=== PATIENT | male | born 1985 | race Caucasian/White ===

== ENCOUNTER 2023-05-05 22:40 | Inpatient (IN) | payer OTHER ==
[2023-05-05] MEDS ORDERED: ORPHENADRINE 30 MG/ML 2 ML VIAL IVP STA (23:04)
[2023-05-05] MEDS ORDERED: KETOROLAC 15 MG/ML 1 ML VIAL IVP STA (23:04)
[2023-05-05] MEDS ORDERED: SODIUM CHLORIDE 0.9% 1,000 ML IV STA (23:04)
[2023-05-05 23:27] LABS: Basophils % (A) 0 %; Eosinophils # (A) 0.1 k/uL (0-0.7); Eosinophils % (A) 1 %; HCT 48.4 % (39.0-53.0); HGB 17.4 gm/dL (13.0-17.5); Lymphocytes % (A) 11 %; MCH 33.5 pg (25.0-35.0); MCHC 35.9 g/dL (31.0-37.0); MCV 93.4 fL (80.0-100.0); Mean Platelet Volume 9.3; Monocytes # (A) 0.7 k/uL (0-1.0); Monocytes % (A) 8 %; Neutrophils # (A) 7.2 k/uL (1.3-7.7); Neutrophils % (A) 78 %; Platelet Count 156 k/uL (150-450); RBC 5.19 m/uL (4.30-5.90); RDW 13.2 % (11.5-15.5); WBC 9.2 k/uL (3.8-10.6)
[2023-05-05 23:48] LABS: ALT 114 U/L (4-49); AST 150 U/L (17-59); African American GFR (CKD) >90 (>60 ml/min/1.73 sqM); Alkaline Phosphatase 112 U/L (38-126); Anion Gap 13 mmol/L; Blood Urea Nitrogen 14 mg/dL (9-20); Calcium 9.7 mg/dL (8.4-10.2); Carbon Dioxide 27 mmol/L (22-30); Chloride 92 mmol/L (98-107); Glucose 68 mg/dL (74-99); Magnesium 1.7 mg/dL (1.6-2.3); Non-African American GFR(CKD) 82 (>60 ml/min/1.73 sqM); Potassium 3.4 mmol/L (3.5-5.1); Sodium 132 mmol/L (137-145); Total Protein 8.3 g/dL (6.3-8.2)
[2023-05-05 23:55] LABS: Creatine Kinase 1235 U/L (55-170)
[2023-05-06] MEDS ORDERED: SODIUM CHLORIDE 0.9% 1,000 ML IV STA ×2 (00:07)
--- NOTE | 2023-05-06 00:19 | ED ---
General Adult HPI - General Chief complaint: Extremity Problem,Nontraumatic Stated complaint: Body cramps Time Seen by Provider: 05/05/23 22:49 Source: patient, RN notes reviewed Mode of arrival: ambulatory Limitations: no limitations - History of Present Illness Initial comments: This is a 37-year-old male who presents to the emergency department for body cramps. 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 However, patient states that this is normal for him and he was not doing any more work than he usually would. Denies sustaining any injuries. However, patient states that he has started to develop severe cramps in the bilateral upper and lower extremities. This has never happened to him before. He does state that prior to work today he had been experiencing diarrhea for 3 days. Denies any nausea or vomiting. Denies any fevers, chills, sore throat, cough, dyspnea, chest pain, palpitations , abdominal pain, nausea, vomiting, back pain, or headaches. - Related Data Allergies Allergy/AdvReac Type Severity Reaction Status Date / Time No Known Allergies Allergy Verified 05/05/23 22:47 Review of Systems ROS Statement: Those systems with pertinent positive or pertinent negative responses have been documented in the HPI. ROS Other: All systems not noted in ROS Statement are negative. Past Medical History Past Medical History: No Reported History History of Any Multi-Drug Resistant Organisms: None Reported Past Surgical History: Hernia Repair Past Psychological History: No Psychological Hx Reported Smoking Status: Current every day smoker Past Alcohol Use History: Daily Past Drug Use History: None Reported General Exam Limitations: no limitations General appearance: alert, in no apparent distress Head exam: Present: atraumatic, normocephalic, normal inspection Respiratory exam: Present: normal lung sounds bilaterally. Absent: respiratory distress, wheezes, rales, rhonchi, stridor Cardiovascular Exam: Present: regular rate, normal rhythm, normal heart sounds. Absent: systolic murmur, diastolic murmur, rubs, gallop, clicks GI/Abdominal exam: Present: soft, normal bowel sounds. Absent: distended, tenderness, guarding, rebound, rigid Neurological exam: Present: alert, oriented X3, CN II-XII intact Psychiatric exam: Present: normal affect, normal mood Skin exam: Present: warm, dry, intact, normal color. Absent: rash Course Vital Signs 05/05/23 05/06/23 22:41 02:50 Temperature 97.8 F 97.9 F Pulse Rate 108 H 66 Respiratory 18 18 Rate Blood Pressure 102/72 157/93 O2 Sat by Pulse 98 99 Oximetry Medical Decision Making - Medical Decision Making This is a 37-year-old male who presents to the emergency department for body cramps. Was pt. sent in by a medical professional or institution? @ -No Did you speak to anyone other than the patient for history? @ -No Did you review nursing and triage notes? @ -Yes, and I agree, it is accurate with regards to the patient's symptoms. Were old charts reviewed? @ -No Differential Diagnosis? @ -Differential Body Cramps: Dehydration, electrolyte deficiency, rhabdomyolysis, injury, this is not meant to be an all-inclusive list. EKG interpreted by me (3pts min.)? @ -Not obtained X-rays interpreted by me (1pt min.)? @ -Not obtained CT interpreted by me (1pt min.)? @ -Not obtained U/S interpreted by me (1pt. min.)? @ -Not interpreted by me What testing was considered but not performed? (CT, X-rays, U/S, labs)? Why? @ -None What meds were considered but not given? Why? @ -None Did you discuss the management of the patient with other professionals? @ -Yes, Beatriz Agosto with [facility] who accepts the patient for admission. Did you reconcile home meds? @ -No Was smoking cessation discussed for >3mins.? @ -No Was critical care preformed (if so, how long)? @ -No Were there social determinants of health that impacted care today? How? (Homelessness, low income, unemployed, alcoholism, drug addiction, transportation, low edu. Level, literacy, decrease access to med. care, shelter, rehab)? @ -No Was there de-escalation of care discussed even if they declined? (Discuss DNR or withdrawal of care, Hospice)? @ -No What co-morbidities impacted this encounter? (DM, HTN, Smoking, COPD, CAD, Cancer, CVA, Hep., AIDS, mental health diagnosis, sleep apnea, morbid obesity)? @ -None Was patient admitted / discharged? @ -Admitted. Lab work obtained revealing a critically elevated creatinine kinase of 1235 suggestive of rhabdomyolysis, which is also consistent with the patient's symptoms. This may be exertional in nature. Liver enzymes were also elevated, which may be related to the rhabdomyolysis. Patient denies any ab dominal pain and he has no known history of liver problems. A liver ultrasound was obtained in light of these findings. Results pending at the time of admission. Patient was given a 2 L bolus of IV fluids and started on maintenance fluids at 130 mL an hour. Patient admitted to medicine for further management of rhabdomyolysis. Undiagnosed new problem with uncertain prognosis? @ -None Drug Therapy requiring intensive monitoring for toxicity (Heparin, Nitro, Insulin, Cardizem)? @ -None Were any procedures done? @ -None Diagnosis/symptom? @ -Rhabdomyolysis Acute, or Chronic, or Acute on Chronic? @ -Acute Uncomplicated (without systemic symptoms) or Complicated (systemic symptoms)? @ -Uncomplicated Side effects of treatment? @ -None Exacerbation, Progression, or Severe Exacerbation] @ -Not applicable Poses a threat to life or bodily function? @ -Yes This case was discussed in detail with the attending ED physician, Dr. Cassidy. Presentation, findings, and treatment plan discussed in detail as well. - Lab Data Result diagrams: 05/05/23 23:03 05/05/23 23:03 Lab Results 05/05/23 05/05/23 05/05/23 Range/Units 23:03 23:03 23:40 WBC 9.2 (3.8-10.6) k/uL RBC 5.19 (4.30-5.90) m/uL Hgb 17.4 (13.0-17.5) gm/dL Hct 48.4 (39.0-53.0) % MCV 93.4 (80.0-100.0) fL MCH 33.5 (25.0-35.0) pg MCHC 35.9 (31.0-37.0) g/dL RDW 13.2 (11.5-15.5) % Plt Count 156 (150-450) k/uL MPV 9.3 Neutrophils % 78 % Lymphocytes % 11 % Monocytes % 8 % Eosinophils % 1 % Basophils % 0 % Neutrophils # 7.2 (1.3-7.7) k/uL Lymphocytes # 1.0 (1.0-4.8) k/uL Monocytes # 0.7 (0-1.0) k/uL Eosinophils # 0.1 (0-0.7) k/uL Basophils # 0.0 (0-0.2) k/uL Sodium 132 L (137-145) mmol/L Potassium 3.4 L (3.5-5.1) mmol/L Chloride 92 L (98-107) mmol/L Carbon Dioxide 27 (22-30) mmol/L Anion Gap 13 mmol/L BUN 14 (9-20) mg/dL Creatinine 1.13 (0.66-1.25) mg/dL Est GFR (CKD-EPI)AfAm >90 (>60 ml/min/1.73 sqM) Est GFR (CKD-EPI)NonAf 82 (>60 ml/min/1.73 sqM) Glucose 68 L (74-99) mg/dL Calcium 9.7 (8.4-10.2) mg/dL Phosphorus 5.0 H (2.5-4.5) mg/dL Magnesium 1.7 (1.6-2.3) mg/dL Total Bilirubin 5.0 H (0.2-1.3) mg/dL AST 150 H (17-59) U/L ALT 114 H (4-49) U/L Alkaline Phosphatase 112 (38-126) U/L Creatine Kinase 1235 H* (55-170) U/L Total Protein 8.3 H (6.3-8.2) g/dL Albumin 5.0 (3.5-5.0) g/dL Urine Color Urine Appearance (Clear) Urine pH (5.0-8.0) Ur Specific [place] (1.001-1.035) Urine Protein (Negative) Urine Glucose (UA) (Negative) Urine Ketones (Negative) Urine Blood (Negative) Urine Nitrite (Negative) Urine Bilirubin (Negative) Urine Urobilinogen (<2.0) mg/dL Ur Leukocyte Esterase (Negative) Influenza Type A (PCR) Not Detected (Not Detectd) Influenza Type B (PCR) Not Detected (Not Detectd) RSV (PCR) Not Detected (Not Detectd) SARS-CoV-2 (PCR) Not Detected (Not Detectd) 05/06/23 Range/Units 00:01 WBC (3.8-10.6) k/uL RBC (4.30-5.90) m/uL Hgb (13.0-17.5) gm/dL Hct (39.0-53.0) % MCV (80.0-100.0) fL MCH (25.0-35.0) pg MCHC (31.0-37.0) g/dL RDW (11.5-15.5) % Plt Count (150-450) k/uL MPV Neutrophils % % Lymphocytes % % Monocytes % % Eosinophils % % Basophils % % Neutrophils # (1.3-7.7) k/uL Lymphocytes # (1.0-4.8) k/uL Monocytes # (0-1.0) k/uL Eosinophils # (0-0.7) k/uL Basophils # (0-0.2) k/uL Sodium (137-145) mmol/L Potassium (3.5-5.1) mmol/L Chloride (98-107) mmol/L Carbon Dioxide (22-30) mmol/L Anion Gap mmol/L BUN (9-20) mg/dL Creatinine (0.66-1.25) mg/dL Est GFR (CKD-EPI)AfAm (>60 ml/min/1.73 sqM) Est GFR (CKD-EPI)NonAf (>60 ml/min/1.73 sqM) Glucose (74-99) mg/dL Calcium (8.4-10.2) mg/dL Phosphorus (2.5-4.5) mg/dL Magnesium (1.6-2.3) mg/dL Total Bilirubin (0.2-1.3) mg/dL AST (17-59) U/L ALT (4-49) U/L Alkaline Phosphatase (38-126) U/L Creatine Kinase (55-170) U/L Total Protein (6.3-8.2) g/dL Albumin (3.5-5.0) g/dL Urine Color Light Yellow Urine Appearance Clear (Clear) Urine pH 5.5 (5.0-8.0) Ur Specific [place] 1.006 (1.001-1.035) Urine Protein Negative (Negative) Urine Glucose (UA) Negative (Negative) Urine Ketones Negative (Negative) Urine Blood Negative (Negative) Urine Nitrite Negative (Negative) Urine Bilirubin Negative (Negative) Urine Urobilinogen <2.0 (<2.0) mg/dL Ur Leukocyte Esterase Negative (Negative) Influenza Type A (PCR) (Not Detectd) Influenza Type B (PCR) (Not Detectd) RSV (PCR) (Not Detectd) SARS-CoV-2 (PCR) (Not Detectd) - Radiology Data Radiology results: report reviewed, image reviewed Disposition Clinical Impression: Rhabdomyolysis Disposition: ADMITTED IP TO THIS HOSP
[2023-05-06 01:33] LABS: Appearance,Urine Clear (Clear); Bilirubin,Urine Negative (Negative); Blood,Urine Negative (Negative); Color,Urine Light Yellow; Glucose,Urine (UA) Negative (Negative); Ketones,Urine Negative (Negative); Leukocyte Esterase,Urine Negative (Negative); Nitrite,Urine Negative (Negative); PH, Urine 5.5 (5.0-8.0); Protein,Urine Negative (Negative); Specific Gravity,Urine 1.006 (1.001-1.035); Urobilinogen,Urine <2.0 mg/dL (<2.0)
[2023-05-06] MEDS ORDERED: ONDANSETRON 4 MG/2 ML VIAL IVP PRN (01:33)
[2023-05-06] MEDS ORDERED: IBUPROFEN 400 MG TAB PO PRN (01:33)
[2023-05-06] MEDS ORDERED: KETOROLAC 15 MG/ML 1 ML VIAL IVP PRN (01:33)
[2023-05-06] MEDS ORDERED: NALOXONE 0.4 MG/ML 1 ML VIAL IV PRN (01:33)
[2023-05-06] MEDS ORDERED: MORPHINE SULFATE 4 MG/ML SYRINGE IV PRN (01:33)
[2023-05-06] MEDS ORDERED: ACETAMINOPHEN TAB 325 MG TAB PO PRN (01:33)
--- NOTE | 2023-05-06 03:20 | US ---
EXAM: US Abdomen Limited CLINICAL HISTORY: ITS.REASON US Reason: Elevated LFTs TECHNIQUE: Real-time ultrasound of the abdomen with image documentation. COMPARISON: No relevant prior studies available. FINDINGS: Liver: Fatty infiltration of the liver. Common bile duct: Common bile duct measures 2.5 mm. Kidneys: Right kidney measures 10.4 mm. IMPRESSION: 1. Fatty infiltration of the liver. 2. Unremarkable gallbladder.
[2023-05-06 07:57] VITALS: RESP 16; TEMP 98.3
[2023-05-06] MEDS ORDERED: SODIUM CHLORIDE 0.9% 1,000 ML IV SCH (08:00)
[2023-05-06] MEDS ORDERED: LOPERAMIDE 2 MG CAP PO STA (10:22)
[2023-05-06] MEDS ORDERED: LOPERAMIDE 2 MG CAP PO PRN (10:22)
[2023-05-06 11:07] LABS: ALT 81 U/L (4-49); AST 104 U/L (17-59); African American GFR (CKD) >90 (>60 ml/min/1.73 sqM); Albumin 3.3 g/dL (3.5-5.0); Albumin/Globulin Ratio 1.3; Alkaline Phosphatase 76 U/L (38-126); Anion Gap 6 mmol/L; Blood Urea Nitrogen 13 mg/dL (9-20); Calcium 8.7 mg/dL (8.4-10.2); Carbon Dioxide 26 mmol/L (22-30); Chloride 102 mmol/L (98-107); Globulin 2.5 g/dL; Glucose 119 mg/dL (74-99); Magnesium 1.7 mg/dL (1.6-2.3); Non-African American GFR(CKD) >90 (>60 ml/min/1.73 sqM); Potassium 3.3 mmol/L (3.5-5.1); Sodium 134 mmol/L (137-145); Total Bilirubin 3.1 mg/dL (0.2-1.3); Total Protein 5.8 g/dL (6.3-8.2)
[2023-05-06] MEDS ORDERED: Potassium Replacement Protocol 1 EACH MISC MISCELLANE PRN ×2 (11:30→11:40)
[2023-05-06] MEDS ORDERED: Magnesium Replacement Protocol 1 EACH MISC MISCELLANE PRN (11:40)
[2023-05-06] MEDS ORDERED: MAGNESIUM SULFATE-D5W PMX 1 GM in DEXTROSE/WATER 1 100ML.BAG IVPB ONE (11:40)
[2023-05-06] MEDS: POTASSIUM CHLORIDE ER 20 MEQ TAB.ER PO SCH ×3 (12:00→16:24)
[2023-05-06] MEDS ORDERED: POTASSIUM CHLORIDE ER 20 MEQ TAB.ER PO SCH (12:00)
[2023-05-06 12:58] VITALS: BP 140/83; PULSE 71
--- NOTE | 2023-05-06 18:12 | P.HPIM ---
History of Present Illness H&P Date: 05/06/23 This is a pleasant 37-year-old male who presented to the emergency department with severe cramping of multiple muscles throughout the whole body. 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 Patient currently does not have a primary care provider and lives in the [facility] and resources will be provided. Patient denies significant past medical history other than a hernia repair at 11 years old, reports to smoking approximately a pack per day and daily drinking including a few beers and a half of a half pint of liquor a few nights a week. Patient had a liver ultrasound done which showed a fatty infiltration of the liver along with unremarkable gallbladder.labs revealed a normal white count, sodium slightly low at 132, potassium 3.4, creatinine mildly elevated at 1.13, calcium 9.7, phosphorus 5.0, magnesium 1.7, total bili 5.0 with an AST of 150 and ALT 114 with creatinine kinase 1235 and albumin was normal at 5.0. Urinalysis was negative and virology testing including influenza, RSV, Covid were all negative. Patient was admitted with elevated CK level and dehydration. Patient started developing some diarrhea this morning and was started on Imodium. Patient was started on IV hydration in the ER and received 2 boluses. Review Of Systems: Constitutional: No fever, no chills, no night sweats. No weight change. No weakness, fatigue or lethargy. No daytime sleepiness. EENT: No headache. No blurred vision or double vision, no loss of vision. No loss of Hearing, no ringing in the ears, no dizziness. No nasal drainage or congestion. No epistaxis. No sore throat. Lungs: No shortness of breath, cough, no sputum production. No wheezing. Cardiovascular: No chest pain, no lower extremity edema. No palpitations. No paroxysmal nocturnal dyspnea. No orthopnea. No lightheadedness or dizziness. No syncopal episodes. Abdominal: No abdominal pain. No nausea, vomiting. No diarrhea. No constipation. No bloody or tarry stools.. No loss of appetite. Genitourinary: No dysuria, increased frequency, urgency. No urinary retention. Musculoskeletal: Reports myalgias. Reports significant muscle weakness, no gait dysfunction, no frequent falls. No back pain. No neck pain. Reports muscles locking up yesterday after work Integumentary: No wounds, no lesions. No rash or pruritus. No unusual bruising. No change in hair or nails. Neurologic: No aphasia. No facial droop. No change in mentation. No head injury. No headache. No paralysis. No paresthesia. Psychiatric: No depression. No anxiety. No mood swings. Endocrine: No abnormal blood sugars. No weight change. No excessive sweating or thirst. No cold intolerance. PHYSICAL EXAMINATION: GENERAL: The patient is alert and oriented x4, Well developed, well nourished. HEENT: Pupils are round and equally reacting to light. EOMI. no scleral icterus. No conjunctival pallor. Normocephalic, atraumatic. No pharyngeal erythema. No thyromegaly. CARDIOVASCULAR: S1 and S2 muffled PULMONARY: Breath sounds clear to auscultation bilaterally with no wheezing or rhonchi noted. ABDOMEN: soft. Nontender on exam. non-distended, normoactive bowel sounds. No palpable organomegaly. MUSCULOSKELETAL: No joint swelling or deformity. EXTREMITIES: No cyanosis, clubbing, or pedal edema. NEUROLOGICAL: Gross neurological examination did not reveal any focal deficits. SKIN: No rashes. Assessment: Muscle cramps likely secondary to dehydration Elevated CK secondary to dehydration Hypokalemia secondary to diarrhea Hypomagnesemia secondary to diarrhea elevated liver enzymes secondary to Daily alcohol use Continued ongoing nicotine abuse GI prophylaxis DVT prophylaxis Full code Plan: Patient to continue on IV hydration and replace electrolytes per protocol. Potassium was 3.3 and magnesium was 1.6 and will replace Alcohol cessation was discussed as patient reports to drinking approximately 3-5 tall beers and half a pint of liquor daily. Patient with elevated liver enzymes along with elevated total bilirubin and underwent liver ultrasound showing fatty infiltration likely secondary to daily alcohol use Tobacco cessation counseled Patient having frequent episodes of diarrhea and will add Imodium along with Questran. Patient reports to feeling improved and will monitor for the next few hours and is having less frequent diarrhea and tolerating diet patient will be discharged home The impression and plan of care has been dictated by Debi Bejarano, nurse practitioner as directed. Dr. Mook MD I have performed a history and examination and MDM of this patient, discussed the same with the dictator, and agree with the dictator's assessment and plan as written ,documented as a scribe. Based on total visit time, I have performed more than 50% of the visit. Any additional findings or plans will be noted. Past Medical History Past Medical History: No Reported History History of Any Multi-Drug Resistant Organisms: None Reported Past Surgical History: Hernia Repair Additional Past Surgical History / Comment(s): hernia repair at 11 yo Past Psychological History: No Psychological Hx Reported Smoking Status: Current every day smoker Past Alcohol Use History: Daily Past Drug Use History: None Reported Medications and Allergies Home Medications Medication Instructions Recorded Confirmed Type Acetaminophen Tab [Tylenol] 650 mg PO Q6HR PRN tab 05/06/23 Rx Cholestyramine (with Sugar) 4 gm PO BID PRN #30 packet 05/06/23 Rx [Questran] Ibuprofen [Motrin] 400 mg PO Q6HR PRN #40 tab 05/06/23 Rx Loperamide [Imodium] 2 mg PO QID PRN #60 cap 05/06/23 Rx Allergies Allergy/AdvReac Type Severity Reaction Status Date / Time No Known Allergies Allergy Verified 05/06/23 07:21 Physical Exam Vitals: Vital Signs Temp Pulse Pulse Resp BP BP Pulse Ox 05/06/23 07:09 98.3 F 75 16 134/84 98 05/06/23 03:12 98.0 F 83 18 153/98 93 L 05/06/23 02:50 97.9 F 66 18 157/93 99 05/05/23 22:41 97.8 F 108 H 18 102/72 98 Intake and Output 05/05/23 05/06/23 05/06/23 22:59 06:59 14:59 Other: Voiding Method Toilet Weight 88.451 kg 88.451 kg Results CBC & Chem 7: 05/05/23 23:03 05/06/23 09:23 Labs: Abnormal Lab Results - Last 24 Hours (Table) 05/05/23 Range/Units 23:03 Sodium 132 L (137-145) mmol/L Potassium 3.4 L (3.5-5.1) mmol/L Chloride 92 L (98-107) mmol/L Glucose 68 L (74-99) mg/dL Phosphorus 5.0 H (2.5-4.5) mg/dL Total Bilirubin 5.0 H (0.2-1.3) mg/dL AST 150 H (17-59) U/L ALT 114 H (4-49) U/L Creatine Kinase 1235 H* (55-170) U/L Total Protein 8.3 H (6.3-8.2) g/dL Thrombosis Risk Factor Assmnt - Choose All That Apply Any of the Below Risk Factors Present?: Yes Each Factor Represents 1 point: Obesity (BMI >25) Each Risk Factor Represents 3 Points: Family history of DVT/PE Other congenital or acquired thrombophilia - If yes, enter type in comment: No Thrombosis Risk Factor Assessment Total Risk Factor Score: 4 Thrombosis Risk Factor Assessment Level: Moderate Risk
--- NOTE | 2023-05-06 18:49 | P.DS ---
Providers Date of admission: 05/06/23 02:23 Expected date of discharge: 05/06/23 Attending physician: Arnulfo Beebe Primary care physician: Stated None Hospital Course: Final diagnosis Muscle cramps likely secondary to dehydration Elevated CK secondary to dehydration Hypokalemia secondary to diarrhea Hypomagnesemia secondary to diarrhea elevated liver enzymes secondary to Daily alcohol use Continued ongoing nicotine abuse GI prophylaxis DVT prophylaxis Full code Discharge disposition Patient is being discharged in a stable condition with guarded prognosis to home . Patient will follow-up with Guerline Romero in the [facility] to establish in the outpatient setting upon discharge. Resources provided for other [facility] physicians as patient has no PCP. Patient to follow-up and have repeat labs of CMP and magnesium in the next few days. Total time taken is greater than 35 minutes. Hospital course This is a 37-year-old male who was recently admitted with muscle cramps and elevated CK level and ER was concern for acute rhabdomyolysis. Level was only 1200 and patient showing improvements with IV hydration along with symptoms are improving. Patient reports to drinking multiple alcoholic beverages daily and did have liver ultrasound showing fatty liver infiltrates and elevated bili level along with elevated liver functions. Has been instructed to avoid all call use. Patient also having multiple episodes of diarrhea is being started on Imodium along with Questran. Patient to continue on multivitamin along with thiamine and folic acid supplements. Resources provided for patient to obtain a primary care provider as he does not have one. Patient reports to feeling improved and would like to go home. Patient provided prescription for repeat labs in the next few days. Currently no reports of chest pain, shortness of breath, or palpitations. Patient is afebrile. No reports of nausea or vomiting and patient is tolerating diet. Patient will be discharged home today. Physical exam: Gen: This is a 37 -year-old male who is awake, alert and oriented 3, well- developed, well-nourished HEENT: Head is atraumatic, normocephalic. Pupils equal, round. Sclerae is anicteric. NECK: Supple. No JVD. No lymphadenopathy. No thyromegaly. LUNGS: Clear to auscultation. No wheezes or rhonchi. No intercostal retractions. HEART: Regular rate and rhythm. No murmur. ABDOMEN: Soft. Bowel sounds are present. No masses. No tenderness. EXTREMITIES: No pedal edema. No calf tenderness. NEUROLOGICAL: Patient is awake, alert and oriented x3. Cranial nerves 2 through 12 are grossly intact. Please refer to medication reconciliation sheet for a list of medications. The impression and plan of care has been dictated by Debi Bejarano, Nurse Practitioner as directed. Dr. Mook MD I have performed a history and examination and MDM of this patient, discussed the same with the dictator, and agree with the dictator's assessment and plan as written ,documented as a scribe. Based on total visit time, I have performed more than 50% of the visit. Patient Condition at Discharge: Stable Plan - Discharge Summary New Discharge Prescriptions: New Ibuprofen [Motrin] 400 mg PO Q6HR PRN #40 tab PRN Reason: Mild Pain Or Fever > 100.5 Acetaminophen Tab [Tylenol] 650 mg PO Q6HR PRN tab PRN Reason: Mild Pain Or Fever > 100.5 Loperamide [Imodium] 2 mg PO QID PRN #60 cap PRN Reason: Diarrhea Cholestyramine (with Sugar) [Questran] 4 gm PO BID PRN #30 packet PRN Reason: Diarrhea Discharge Medication List Acetaminophen Tab [Tylenol] 650 mg PO Q6HR PRN tab 05/06/23 [Rx] Cholestyramine (with Sugar) [Questran] 4 gm PO BID PRN #30 packet 05/06/23 [Rx] Ibuprofen [Motrin] 400 mg PO Q6HR PRN #40 tab 05/06/23 [Rx] Loperamide [Imodium] 2 mg PO QID PRN #60 cap 05/06/23 [Rx] Follow up Appointment(s)/Referral(s): Guerline Romero PAC [REFERRING] - 1 Week (please call to schedule a new patient appointment. [phone]) Ambulatory/Diagnostic Orders: Basic Metabolic Panel [LAB.AMB] Time Frame: 2 Days, Location: None Selected Patient Instructions/Handouts: Hypokalemia (DC), Rhabdomyolysis (DC), Abuse of Alcohol (DC), Hypomagnesemia (DC) Activity/Diet/Wound Care/Special Instructions: Activity Limited until follow-up Follow-up and establish with primary care provider Continue bland diet including magnesium and potassium supplements Continue to hydrate Encourage fluids and rest Repeat labs in 2-3 days to monitor electrolytes Avoid alcohol use Discharge/Stand Alone Forms: [facility] Area PCPs Discharge Disposition: HOME SELF-CARE
== END 2023-05-06 16:39 | disposition home or self-care (01) | DRG 422 ==
LOC: EC 22:40 → 5NMEDONC 05-06 02:23
PROVIDERS: ADMIT Hospitalist; ATTEND Hospitalist
DX: E86.0 Dehydration (principal); E83.42 Hypomagnesemia; K76.0 Fatty (change of) liver, not elsewhere classified; E87.6 Hypokalemia; Z20.822 Contact with and (suspected) exposure to COVID-19; F17.210 Nicotine dependence, cigarettes, uncomplicated; I10 Essential (primary) hypertension; R19.7 Diarrhea, unspecified; Z71.6 Tobacco abuse counseling; Z87.19 Personal history of other diseases of the digestive system
CPT/HCPCS: 36415; 76705; 80053; 81003; 82550; 83735; 84100; 85025; 87636; 96361; 96374; 96375; 99284

== ENCOUNTER 2025-01-14 06:33 | Emergency (ER) | payer OTHER ==
--- NOTE | 2025-01-14 06:40 | ED ---
Back Pain HPI - General Chief Complaint: Back Pain/Injury Stated Complaint: Flank pain Time Seen by Provider: 01/14/25 06:36 Source: patient, RN notes reviewed Mode of arrival: EMS Limitations: no limitations - History of Present Illness Initial Comments: This is a 39-year-old male who presents to the emergency department for right flank pain. States that it started last night around 11 PM. The pain radiates into the abdomen. He has associated nausea and vomiting. Reports a history of kidney stones about a year ago and states that it feels similar. He was able to pass the kidney stone on his own last time. Denies any fevers/chills or urinary symptoms. He is a recovering drug addict and alcoholic and is currently refusing all pain medication, including nonaddictive substances like NSAIDs and Tylenol. MD Complaint: back pain - Related Data Previous Rx's Medication Instructions Recorded Acetaminophen Tab [Tylenol] 650 mg PO Q6HR PRN tab 05/06/23 Cholestyramine (with Sugar) 4 gm PO BID PRN #30 packet 05/06/23 [Questran] Ibuprofen [Motrin] 400 mg PO Q6HR PRN #40 tab 05/06/23 Loperamide [Imodium] 2 mg PO QID PRN #60 cap 05/06/23 Allergies Allergy/AdvReac Type Severity Reaction Status Date / Time No Known Allergies Allergy Verified 05/06/23 07:21 Review of Systems ROS Statement: Those systems with pertinent positive or pertinent negative responses have been documented in the HPI. ROS Other: All systems not noted in ROS Statement are negative. Past Medical History Past Medical History: No Reported History History of Any Multi-Drug Resistant Organisms: None Reported Past Surgical History: Hernia Repair Additional Past Surgical History / Comment(s): hernia repair at 11 yo Past Psychological History: No Psychological Hx Reported Smoking Status: Current every day smoker Past Alcohol Use History: Daily Past Drug Use History: None Reported General Exam Limitations: no limitations General appearance: alert, in distress Head exam: Present: atraumatic, normocephalic, normal inspection Respiratory exam: Present: normal lung sounds bilaterally. Absent: respiratory distress, wheezes, rales, rhonchi, stridor Cardiovascular Exam: Present: regular rate, normal rhythm GI/Abdominal exam: Present: soft, tenderness (RLQ), normal bowel sounds. Absent: distended Back exam: Present: CVA tenderness (R). Absent: CVA tenderness (L) Neurological exam: Present: alert, oriented X3, CN II-XII intact Psychiatric exam: Present: normal affect, normal mood Skin exam: Present: warm, dry, intact, normal color. Absent: rash Course Vital Signs 01/14/25 01/14/25 01/14/25 06:35 07:24 09:01 Temperature 97.8 F Pulse Rate 99 95 86 Respiratory 22 18 18 Rate Blood Pressure 160/117 158/130 158/126 O2 Sat by Pulse 97 97 98 Oximetry 01/14/25 09:43 Temperature 98.0 F Pulse Rate 85 Respiratory 18 Rate Blood Pressure 155/111 O2 Sat by Pulse 98 Oximetry Medical Decision Making - Medical Decision Making This is a 39 year old male who presents to the emergency department for right flank pain. Was pt. sent in by a medical professional or institution? @ -No Did you speak to anyone other than the patient for history? @ -No Did you review nursing and triage notes? @ -Yes, and I agree, it is accurate with regards to the patient's symptoms. Were old charts reviewed? @ -No Differential Diagnosis? @ -Differential Flank Pain: UTI, pyelonephritis, kidney stone, musculoskeletal, pancreatitis, cholecystitis, this is not meant to be an all-inclusive list. EKG interpreted by me (3pts min.)? @ -Not obtained X-rays interpreted by me (1pt min.)? @ -Not obtained CT interpreted by me (1pt min.)? @ -CT scan of the abdomen and pelvis obtained. My interpretation identifies no ureteral calculus. U/S interpreted by me (1pt. min.)? @ -Scrotal ultrasound obtained. My interpretation identifies no evidence of a testicular torsion. What testing was considered but not performed? (CT, X-rays, U/S, labs)? Why? @ -None What meds were considered but not given? Why? @ -Toradol and Tylenol, however patient refused. Did you discuss the management of the patient with other professionals? @ -No Did you reconcile home meds? @ -No Was smoking cessation discussed for >3mins.? @ -No Was critical care preformed (if so, how long)? @ -No Were there social determinants of health that impacted care today? How? (Homelessness, low income, unemployed, alcoholism, drug addiction, transportation, low edu. Level, literacy, decrease access to med. care, alf, rehab)? @ -Hx of drug addiction, making him hesitant to treatment Was there de-escalation of care discussed even if they declined? (Discuss DNR or withdrawal of care, Hospice)? @ -No What co-morbidities impacted this encounter? (DM, HTN, Smoking, COPD, CAD, Cancer, CVA, Hep., AIDS, mental health diagnosis, sleep apnea, morbid obesity)? @ -Kidney stones, hx of addiction Was patient admitted / discharged? @ -Discharged. Lab work demonstrates hypokalemia with a potassium of 3.2. Lactic acid mildly elevated at 2.3. LFTs mildly elevated and consistent with prior values and patient's history of alcohol use. 40 mEq of K-Dur and 1 L of IV fluids administered. CT scan of the abdomen and pelvis obtained revealing no evidence of a ureteral calculus or other acute process. His symptoms did seem to be lower down in his pelvis and given the severity of the symptoms and elevated lactic acid, we proceeded with an ultrasound of the scrotum to evaluate for any signs of a testicular torsion or other irregularity. Scrotal ultrasound revealed no acute process. Patient was refusing all pain medication, including nonaddictive substances such as Toradol and Tylenol in the emergency department. He reports a history of addiction which makes him hesitant to this even for nonaddictive medication. While he was in quite a bit of distress initially, he states that it started to feel better after he urinated. It is possible that he passed a kidney stone while he was here given that nothing was evident on imaging. He did also have trace blood in his urine. Otherwise the cause of his symptoms is not entirely clear. Patient discharged home in stable condition and advised to follow-up with his primary care provider. Case discussed with ED attending Dr. Garcia. Return precautions reviewed in depth, the patient is instructed to return to the emergency department with any new, worsening, or concerning symptoms. Patient verbalized understanding. Undiagnosed new problem with uncertain prognosis? @ -None Drug Therapy requiring intensive monitoring for toxicity (Heparin, Nitro, Insulin, Cardizem)? @ -None Were any procedures done? @ -None Diagnosis/symptom? @ -Back pain, abdominal pain Acute, or Chronic, or Acute on Chronic? @ -Acute Uncomplicated (without systemic symptoms) or Complicated (systemic symptoms)? @ -Uncomplicated Side effects of treatment? @ -None Exacerbation, Progression, or Severe Exacerbation] @ -Not applicable Poses a threat to life or bodily function? @ -No - Lab Data Result diagrams: 01/14/25 06:51 01/14/25 06:51 Lab Results 01/14/25 01/14/25 01/14/25 Range/Units 06:51 06:51 06:51 WBC 3.41 L (4.50-10.00) 10*3/uL RBC 4.49 (4.40-5.60) 10*6/uL Hgb 15.3 (13.0-17.0) g/dL Hct 40.6 (39.6-50.0) % MCV 90.4 (80.0-97.0) fL MCH 34.1 H (27.0-32.0) pg MCHC 37.7 H (32.0-37.0) g/dL Plt Count 100 L (140-440) 10*3/uL MPV 9.8 (9.5-12.2) fL Immature Gran % (Auto) 0.3 % Neutrophils % 52.7 % Lymphocytes % 32.6 % Monocytes % 10.0 % Eosinophils % 3.5 % Basophils % 0.9 % Immature Gran # 0.01 (0.00-0.04) 10*3/uL Neutrophils # 1.80 (1.80-7.70) 10*3/uL Lymphocytes # 1.11 (0.90-5.00) 10*3/uL Monocytes # 0.34 (0.20-1.00) 10*3/uL Eosinophils # 0.12 (0.04-0.35) 10*3/uL Basophils # 0.03 (0.00-0.10) 10*3/uL Sodium 143 (137-145) mmol/L Potassium 3.2 L (3.5-5.1) mmol/L Chloride 107 (98-107) mmol/L Carbon Dioxide 24 (22-30) mmol/L Anion Gap 12 mmol/L BUN 7 L (9-20) mg/dL Creatinine 0.59 L (0.66-1.25) mg/dL Est GFR (CKD-EPI)AfAm >90 (>60 ml/min/1.73 sqM) Est GFR (CKD-EPI)NonAf >90 (>60 ml/min/1.73 sqM) Glucose 87 (74-99) mg/dL Lactic Ac Sepsis Rflx Plasma Lactic Acid Aaron 2.3 H* (0.7-2.0) mmol/L Calcium 7.8 L (8.4-10.2) mg/dL Total Bilirubin 1.3 (0.2-1.3) mg/dL AST 138 H (17-59) U/L ALT 55 H (4-49) U/L Alkaline Phosphatase 73 (38-126) U/L Total Protein 6.7 (6.3-8.2) g/dL Albumin 4.0 (3.5-5.0) g/dL Urine Color Urine Appearance (Clear) Urine pH (5.0-8.0) Ur Specific [place] (1.001-1.035) Urine Protein (Negative) Urine Glucose (UA) (Negative) Urine Ketones (Negative) Urine Blood (Negative) Urine Nitrite (Negative) Urine Bilirubin (Negative) Urine Urobilinogen (<2.0) mg/dL Ur Leukocyte Esterase (Negative) Urine RBC (0-5) /hpf Urine WBC (0-5) /hpf Urine Mucus (None) /hpf 01/14/25 01/14/25 Range/Units 07:30 07:33 WBC (4.50-10.00) 10*3/uL RBC (4.40-5.60) 10*6/uL Hgb (13.0-17.0) g/dL Hct (39.6-50.0) % MCV (80.0-97.0) fL MCH (27.0-32.0) pg MCHC (32.0-37.0) g/dL Plt Count (140-440) 10*3/uL MPV (9.5-12.2) fL Immature Gran % (Auto) % Neutrophils % % Lymphocytes % % Monocytes % % Eosinophils % % Basophils % % Immature Gran # (0.00-0.04) 10*3/uL Neutrophils # (1.80-7.70) 10*3/uL Lymphocytes # (0.90-5.00) 10*3/uL Monocytes # (0.20-1.00) 10*3/uL Eosinophils # (0.04-0.35) 10*3/uL Basophils # (0.00-0.10) 10*3/uL Sodium (137-145) mmol/L Potassium (3.5-5.1) mmol/L Chloride (98-107) mmol/L Carbon Dioxide (22-30) mmol/L Anion Gap mmol/L BUN (9-20) mg/dL Creatinine (0.66-1.25) mg/dL Est GFR (CKD-EPI)AfAm (>60 ml/min/1.73 sqM) Est GFR (CKD-EPI)NonAf (>60 ml/min/1.73 sqM) Glucose (74-99) mg/dL Lactic Ac Sepsis Rflx Y Plasma Lactic Acid Aaron (0.7-2.0) mmol/L Calcium (8.4-10.2) mg/dL Total Bilirubin (0.2-1.3) mg/dL AST (17-59) U/L ALT (4-49) U/L Alkaline Phosphatase (38-126) U/L Total Protein (6.3-8.2) g/dL Albumin (3.5-5.0) g/dL Urine Color Colorless Urine Appearance Clear (Clear) Urine pH 6.5 (5.0-8.0) Ur Specific [place] 1.008 (1.001-1.035) Urine Protein Trace H (Negative) Urine Glucose (UA) Negative (Negative) Urine Ketones Negative (Negative) Urine Blood Trace H (Negative) Urine Nitrite Negative (Negative) Urine Bilirubin Negative (Negative) Urine Urobilinogen <2.0 (<2.0) mg/dL Ur Leukocyte Esterase Negative (Negative) Urine RBC <1 (0-5) /hpf Urine WBC <1 (0-5) /hpf Urine Mucus Rare H (None) /hpf - Radiology Data Radiology results: report reviewed, image reviewed Disposition Clinical Impression: Right lower quadrant abdominal pain, Low back pain, Hypokalemia Disposition: HOME SELF-CARE Instructions (If sedation given, give patient instructions): Abdominal Pain (ED), Back Pain (ED) Additional Instructions: Return to the emergency department with any new, worsening, or concerning symptoms. Alternate with ibuprofen and Tylenol as needed for pain relief. Follow up with your primary care provider in 1-2 days. Is patient prescribed a controlled substance at d/c from ED?: No Referrals: None,Stated [Primary Care Provider] - 1-2 days Time of Disposition: 09:31
[2025-01-14 07:10] LABS: ALT 55 U/L (4-49); AST 138 U/L (17-59); African American GFR (CKD) >90 (>60 ml/min/1.73 sqM); Alkaline Phosphatase 73 U/L (38-126); Anion Gap 12 mmol/L; Blood Urea Nitrogen 7 mg/dL (9-20); Calcium 7.8 mg/dL (8.4-10.2); Carbon Dioxide 24 mmol/L (22-30); Chloride 107 mmol/L (98-107); Glucose 87 mg/dL (74-99); Non-African American GFR(CKD) >90 (>60 ml/min/1.73 sqM); Potassium 3.2 mmol/L (3.5-5.1); Sodium 143 mmol/L (137-145); Total Bilirubin 1.3 mg/dL (0.2-1.3); Total Protein 6.7 g/dL (6.3-8.2)
[2025-01-14 07:28] VITALS: RESP 18
[2025-01-14] MEDS: SODIUM CHLORIDE 0.9% 1,000 ML IV ONE (07:35)
[2025-01-14 07:37] LABS: Basophils # (A) 0.03 10*3/uL (0.00-0.10); Basophils % (A) 0.9 %; Eosinophils # (A) 0.12 10*3/uL (0.04-0.35); Eosinophils % (A) 3.5 %; HCT 40.6 % (39.6-50.0); HGB 15.3 g/dL (13.0-17.0); Lymphocytes # (A) 1.11 10*3/uL (0.90-5.00); Lymphocytes % (A) 32.6 %; MCH 34.1 pg (27.0-32.0); MCHC 37.7 g/dL (32.0-37.0); MCV 90.4 fL (80.0-97.0); Mean Platelet Volume 9.8 fL (9.5-12.2); Monocytes # (A) 0.34 10*3/uL (0.20-1.00); Neutrophils % (A) 52.7 %; Platelet Count 100 10*3/uL (140-440); RBC 4.49 10*6/uL (4.40-5.60); RDW 12.8 % (11.5-14.5); WBC 3.41 10*3/uL (4.50-10.00)
[2025-01-14] MEDS: POTASSIUM CHLORIDE ER 20 MEQ TAB.ER PO STA (07:46)
--- NOTE | 2025-01-14 07:47 | CT ---
EXAMINATION TYPE: CT abdomen pelvis wo con DATE OF EXAM: 01/14/2025 7:11 AM COMPARISON: Ultrasound CLINICAL INDICATION: Male, 39 years old with history of Right flank pain; Right flank pain TECHNIQUE: Axial CT abdomen pelvis wo con;Sagittal and coronal reformats were created on a separate workstation. Contrast used: mL of , (none if empty) Oral contrast used: without Oral Contrast (none if empty) CT DLP: 596.5 mGycm, Automated exposure control for dose reduction was used. FINDINGS: LOWER CHEST: Mild bilateral gynecomastia changes. ABDOMEN LIVER: There is low-attenuation of the liver parenchyma with superimposed additional areas of lower a ttenuation. GALLBLADDER AND BILE DUCTS: Unremarkable. PANCREAS: Unremarkable. SPLEEN: Unremarkable. ADRENAL GLANDS: Unremarkable. KIDNEYS AND URETERS: No evidence of hydronephrosis or obstructing renal calculus. The ureters are unr emarkable. PELVIS BLADDER: No evidence for wall thickening or mass given limitations of exam. REPRODUCTIVE: A scrotal eileen is thought to be present. ABDOMEN & PELVIS STOMACH AND BOWEL: No evidence of bowel obstruction. Few scattered colonic diverticula. The appendix is normal. PERITONEUM/RETROPERITONEUM: No evidence of pneumoperitoneum or free fluid. VASCULATURE: No evidence of aortic aneurysm. MUSCULOSKELETAL: No acute osseous abnormalities LYMPH NODES: No gross evidence for lymphadenopathy. SOFT TISSUE/ABDOMINAL WALL: Bilateral fat-containing hernias. IMPRESSION: 1. Hepatic steatosis. Correlate with serum markers to exclude superimposed hepatitis. 2. Bilateral fat-containing inguinal hernias. 3. Normal appendix. 4. Colonic diverticulosis. [facility], , 01/14/2025 7:45 AM
--- NOTE | 2025-01-14 09:13 | US ---
EXAMINATION TYPE: US scrotum with doppler. DATE OF EXAM: 01/14/2025 COMPARISON: NONE CLINICAL INDICATION: Male, 39 years old with history of Right sided groin pain; Right side pain TECHNIQUE: Grayscale, color Doppler and spectral Doppler imaging of the scrotum. FINDINGS: EXAM MEASUREMENTS: TESTICLES: Right Testicle: 3.3 x 2.3 x 3.9 cm Left Testicle: 4.6 x 2.1 x 3.2 cm EPIDIDYMIS HEAD: Right Epididymis: 2.0 x 1.3 x 1.5 cm Left Epididymis: Not well visualized. Doppler performed to assess for testicular vascularity; good bilateral color flow and spectral wavefo kurt are seen. There is no evidence of testicular torsion. Presence of hydroceles: no Presence of varicoceles: no IMPRESSION: 1. No evidence for acute process. 2. No evidence for intratesticular mass. 3. Appropriate arterial and venous spectral waveforms to the testes. [facility], , 01/14/2025 9:11 AM
[2025-01-14 09:17] LABS: Appearance,Urine Clear (Clear); Bilirubin,Urine Negative (Negative); Blood,Urine Trace (Negative); Color,Urine Colorless; Glucose,Urine (UA) Negative (Negative); Ketones,Urine Negative (Negative); Leukocyte Esterase,Urine Negative (Negative); Mucus,Urine Rare /hpf; Nitrite,Urine Negative (Negative); PH, Urine 6.5 (5.0-8.0); Protein,Urine Trace (Negative); RBC,Urine <1 /hpf (0-5); Specific Gravity,Urine 1.008 (1.001-1.035); Urobilinogen,Urine <2.0 mg/dL (<2.0); WBC,Urine <1 /hpf (0-5)
[2025-01-14 09:45] VITALS: BP 155/111; PULSE 85; TEMP 98
== END 2025-01-14 09:45 | disposition home or self-care (01) ==
LOC: EC 06:33
DX: R10.31 Right lower quadrant pain (principal); M54.50 Low back pain, unspecified; E87.6 Hypokalemia; F17.200 Nicotine dependence, unspecified, uncomplicated; Z87.442 Personal history of urinary calculi
CPT/HCPCS: 36415; 74176; 76870; 80053; 81001; 83605; 85025; 93975; 96360; 99285

== ENCOUNTER 2025-02-20 12:08 | Emergency (ER) | payer OTHER ==
[2025-02-20 12:32] VITALS: BP 189/114; PULSE 114; RESP 22; TEMP 97.8
[2025-02-20] MEDS: SODIUM CHLORIDE 0.9% 1,000 ML IV STA (13:16)
--- NOTE | 2025-02-20 13:30 | ED ---
General Adult HPI - General Chief complaint: Overdose Stated complaint: Chest pain,drug rxn Time Seen by Provider: 02/20/25 12:41 Source: patient Mode of arrival: ambulatory Limitations: no limitations - History of Present Illness Initial comments: Dictation was produced using [employer] dictation software. please excuse any grammatical, word or spelling errors. Chief Complaint: 39-year-old male presents to the emergency department with accidental ingestion of Adderall History of Present Illness: Patient is a 39-year-old male he was up this morning to take ibuprofen for his ankle surgery. He actually took his sisters Adderall which is 30 mg. Take 1 tablet. Patient denies history of ever taking any Adderall or sympathomimetic type medications. States that he has been having palpitations dry mouth and headache. The ROS documented in this emergency department record has been reviewed and confirmed by me. Those systems with pertinent positive or negative responses have been documented in the HPI. All other systems are other negative and/or noncontributory. - Related Data Home Medications Medication Instructions Recorded Confirmed No Known Home Medications 02/20/25 02/20/25 Allergies Allergy/AdvReac Type Severity Reaction Status Date / Time No Known Allergies Allergy Verified 02/20/25 12:32 Review of Systems ROS Statement: Those systems with pertinent positive or pertinent negative responses have been documented in the HPI. ROS Other: All systems not noted in ROS Statement are negative. Past Medical History Past Medical History: No Reported History History of Any Multi-Drug Resistant Organisms: None Reported Past Surgical History: Hernia Repair, Orthopedic Surgery Additional Past Surgical History / Comment(s): hernia repair at 11 yo Past Psychological History: No Psychological Hx Reported Smoking Status: Current every day smoker Past Alcohol Use History: Daily Past Drug Use History: None Reported General Exam - General Exam Comments Initial Comments: PHYSICAL EXAM: General Impression: Alert and oriented x3, not in acute distress HEENT: Normocephalic atraumatic, extra-ocular movements intact, pupils equal and reactive to light bilaterally, mucous membranes moist. Cardiovascular: Heart regular rate and rhythm Chest: Able to complete full sentences, no retractions, no tachypnea Abdomen: abdomen soft, non-tender, non-distended, no organomegaly Musculoskeletal: Pulses present and equal in all extremities, no peripheral edema Motor: no focal deficits noted Neurological: CN II-XII grossly intact, no focal motor or sensory deficits noted Skin: Intact with no visualized rashes Psych: Normal affect and mood Limitations: no limitations Course Vital Signs 02/20/25 12:27 Temperature 97.8 F Pulse Rate 114 H Respiratory 22 Rate Blood Pressure 189/114 O2 Sat by Pulse 98 Oximetry EKG Findings - EKG Comments: EKG Findings:: My EKG interpretation: Ventricular rate 97, sinus rhythm, KY 165, cures 100, QTc 427. No [place] prolongation, no QTC prolongation, no ST or T-wave changes noted. Overall, this EKG is unremarkable Medical Decision Making - Medical Decision Making Was pt. sent in by a medical professional or institution (, PA, ASSISTANT PROFESSOR OF DRAMA, urgent care, hospital, or assisted...) When possible be specific @ -No Did you speak to anyone other than the patient for history (EMS, parent, family, police, friend...)? What history was obtained from this source @ -No Did you review nursing and triage notes (agree or disagree)? Why? @ -I reviewed and agree with nursing and triage notes Were old charts reviewed (outside hosp., previous admission, EMS record, old EKG, old radiological studies, urgent care reports/EKG's, assisted records)? Report findings @ -No old charts were reviewed Differential Diagnosis (chest pain, altered mental status, abdominal pain women, abdominal pain men, vaginal bleeding, musculoskeletal, weakness, fever, dyspnea, syncope, headache, dizziness, GI bleed, back pain, seizure, CVA, palpatations, mental health)? @ - Differential Palpitations: Ventricular arrhythmias, atrial arrhythmias, myocardial infarction, anemia, t hyrotoxicosis, electrolyte imbalance, hypokalemia, pulmonary embolism, pulmonary disease, drugs, alcohol, anxiety, stress.... This is not meant to be an all-inclusive list. EKG interpreted by me (3pts min.). @ -See above X-rays interpreted by me (1pt min.). @ -None done CT interpreted by me (1pt min.). @ -None done U/S interpreted by me (1pt. min.). @ -None done What testing was considered but not performed or refused? (CT, X-rays, U/S, labs)? Why? @ -None What meds were considered but not given or refused? Why? @ -None Was smoking cessation discussed for >3mins.? @ -No Were there social determinants of health that impacted care today? How? (Homelessness, low income, unemployed, alcoholism, drug addiction, transportation, low edu. Level, literacy, decrease access to med. care, snf, rehab)? @ -No Was there de-escalation of care discussed even if they declined (Discuss DNR or withdrawal of care, Hospice)? DNR status @ -No What co-morbidities impacted this encounter? (DM, HTN, Smoking, COPD, CAD, Cancer, CVA, ARF, Chemo, Hep., AIDS, mental health diagnosis, sleep apnea, morbi d obesity)? @ -Alcoholism. Patient admits to half pint of liquor daily. States that he admits withdrawal symptoms if he goes approximately 10 hours without drinking. Last alcohol intake was last night. Was patient admitted / discharged? Hospital course, mention meds given and route, prescriptions, significant lab abnormalities, going to OR and other pertinent info. @ -39-year-old male states that he is here today for palpitations after having taken an Adderall pill on accident. Vital signs upon arrival are within acceptable limits. Laboratory evaluation shows f hypokalemia of 2.9. Patient given parenteral and oral potassium. Patient improved after Ativan and IV fluids. Discharge advised follow-up with primary care doctor.. Urine drug screen is negative. Did you discuss the management of the patient with other professionals (professionals i.e. , PA, ASSISTANT PROFESSOR OF DRAMA, lab, RT, psych nurse, public health social worker, rotary lithographic press operator, teacher, surveillance officer, bilingual patient support caseworker)? Give summary @ -No Was critical care preformed (if so, how long)? @ -No Undiagnosed new problem with uncertain prognosis? @ -No Drug Therapy requiring intensive monitoring for toxicity (Heparin, Nitro, Insulin, Cardizem)? @ -No Were any procedures done? @ -No Diagnosis/symptom? Acute, or Chronic, or Acute on Chronic? Uncomplicated (without systemic symptoms) or Complicated (systemic symptoms)? @ -Accidental Adderall ingestion, EtOH withdrawal? Side effects of treatment? @ -No Exacerbation, Progression, or Severe Exacerbation? @ -No Poses a threat to life or bodily function? How? (Chest pain, [place], AL, pneumonia, PE, COPD, DKA, ARF, appy, cholecystitis, CVA, Diverticulitis, Homicidal, Suicidal, threat to staff... and all critical care pts) @ -yes - Lab Data Result diagrams: 02/20/25 12:41 02/20/25 12:41 Lab Results 02/20/25 02/20/25 02/20/25 Range/Units 12:41 12:41 12:41 WBC 3.37 L (4.50-10.00) 10*3/uL RBC 4.17 L (4.40-5.60) 10*6/uL Hgb 15.0 (13.0-17.0) g/dL Hct 40.2 (39.6-50.0) % MCV 96.4 D (80.0-97.0) fL MCH 36.0 H (27.0-32.0) pg MCHC 37.3 H (32.0-37.0) g/dL Plt Count 150 (140-440) 10*3/uL MPV 9.7 (9.5-12.2) fL Immature Gran % (Auto) 0.9 % Neutrophils % 63.7 % Lymphocytes % 22.6 % Monocytes % 10.4 % Eosinophils % 1.2 % Basophils % 1.2 % Immature Gran # 0.03 (0.00-0.04) 10*3/uL Neutrophils # 2.15 (1.80-7.70) 10*3/uL Lymphocytes # 0.76 L (0.90-5.00) 10*3/uL Monocytes # 0.35 (0.20-1.00) 10*3/uL Eosinophils # 0.04 (0.04-0.35) 10*3/uL Basophils # 0.04 (0.00-0.10) 10*3/uL Sodium 140 (137-145) mmol/L Potassium 2.9 L (3.5-5.1) mmol/L Chloride 101 (98-107) mmol/L Carbon Dioxide 23 (22-30) mmol/L Anion Gap 16 mmol/L BUN 8 L (9-20) mg/dL Creatinine 0.61 L (0.66-1.25) mg/dL Est GFR (CKD-EPI)AfAm >90 (>60 ml/min/1.73 sqM) Est GFR (CKD-EPI)NonAf >90 (>60 ml/min/1.73 sqM) Glucose 96 (74-99) mg/dL Calcium 9.1 (8.4-10.2) mg/dL Magnesium 1.6 (1.6-2.3) mg/dL Total Bilirubin 1.9 H (0.2-1.3) mg/dL AST 119 H (17-59) U/L ALT 49 (4-49) U/L Alkaline Phosphatase 93 (38-126) U/L Troponin I (0.000-0.034) ng/mL Total Protein 7.6 (6.3-8.2) g/dL Albumin 4.9 (3.5-5.0) g/dL Salicylates <1.0 mg/dL Urine Opiates Screen Not Detected (NotDetected) Ur Oxycodone Screen Not Detected (NotDetected) Urine Methadone Screen Not Detected (NotDetected) Acetaminophen <10.0 ug/mL Ur Barbiturates Screen Not Detected (NotDetected) U Tricyclic Antidepress Not Detected (NotDetected) Ur Phencyclidine Scrn Not Detected (NotDetected) Ur Amphetamines Screen Detected H (NotDetected) U Methamphetamines Scrn Not Detected (NotDetected) U Benzodiazepines Scrn Not Detected (NotDetected) Urine Cocaine Screen Not Detected (NotDetected) U Marijuana (THC) Screen Not Detected (NotDetected) Serum Alcohol 99 mg/dL 02/20/25 Range/Units 12:41 WBC (4.50-10.00) 10*3/uL RBC (4.40-5.60) 10*6/uL Hgb (13.0-17.0) g/dL Hct (39.6-50.0) % MCV (80.0-97.0) fL MCH (27.0-32.0) pg MCHC (32.0-37.0) g/dL Plt Count (140-440) 10*3/uL MPV (9.5-12.2) fL Immature Gran % (Auto) % Neutrophils % % Lymphocytes % % Monocytes % % Eosinophils % % Basophils % % Immature Gran # (0.00-0.04) 10*3/uL Neutrophils # (1.80-7.70) 10*3/uL Lymphocytes # (0.90-5.00) 10*3/uL Monocytes # (0.20-1.00) 10*3/uL Eosinophils # (0.04-0.35) 10*3/uL Basophils # (0.00-0.10) 10*3/uL Sodium (137-145) mmol/L Potassium (3.5-5.1) mmol/L Chloride (98-107) mmol/L Carbon Dioxide (22-30) mmol/L Anion Gap mmol/L BUN (9-20) mg/dL Creatinine (0.66-1.25) mg/dL Est GFR (CKD-EPI)AfAm (>60 ml/min/1.73 sqM) Est GFR (CKD-EPI)NonAf (>60 ml/min/1.73 sqM) Glucose (74-99) mg/dL Calcium (8.4-10.2) mg/dL Magnesium (1.6-2.3) mg/dL Total Bilirubin (0.2-1.3) mg/dL AST (17-59) U/L ALT (4-49) U/L Alkaline Phosphatase (38-126) U/L Troponin I 0.021 (0.000-0.034) ng/mL Total Protein (6.3-8.2) g/dL Albumin (3.5-5.0) g/dL Salicylates mg/dL Urine Opiates Screen (NotDetected) Ur Oxycodone Screen (NotDetected) Urine Methadone Screen (NotDetected) Acetaminophen ug/mL Ur Barbiturates Screen (NotDetected) U Tricyclic Antidepress (NotDetected) Ur Phencyclidine Scrn (NotDetected) Ur Amphetamines Screen (NotDetected) U Methamphetamines Scrn (NotDetected) U Benzodiazepines Scrn (NotDetected) Urine Cocaine Screen (NotDetected) U Marijuana (THC) Screen (NotDetected) Serum Alcohol mg/dL Disposition Clinical Impression: Accidental drug overdose Disposition: HOME SELF-CARE Condition: Fair Instructions (If sedation given, give patient instructions): Adult Overdose (ED) Is patient prescribed a controlled substance at d/c from ED?: No Referrals: None,Stated [Primary Care Provider] - 1-2 days Time of Disposition: 15:14
[2025-02-20 13:37] LABS: Basophils # (A) 0.04 10*3/uL (0.00-0.10); Basophils % (A) 1.2 %; Eosinophils # (A) 0.04 10*3/uL (0.04-0.35); Eosinophils % (A) 1.2 %; HCT 40.2 % (39.6-50.0); Lymphocytes # (A) 0.76 10*3/uL (0.90-5.00); Lymphocytes % (A) 22.6 %; MCHC 37.3 g/dL (32.0-37.0); Mean Platelet Volume 9.7 fL (9.5-12.2); Monocytes # (A) 0.35 10*3/uL (0.20-1.00); Monocytes % (A) 10.4 %; Neutrophils # (A) 2.15 10*3/uL (1.80-7.70); Neutrophils % (A) 63.7 %; Platelet Count 150 10*3/uL (140-440); RBC 4.17 10*6/uL (4.40-5.60); RDW 16.1 % (11.5-14.5); WBC 3.37 10*3/uL (4.50-10.00)
[2025-02-20 13:40] LABS: MCV 96.4 fL (80.0-97.0)
[2025-02-20 13:45] LABS: ALT 49 U/L (4-49); AST 119 U/L (17-59); Acetaminophen <10.0 ug/mL; African American GFR (CKD) >90 (>60 ml/min/1.73 sqM); Albumin 4.9 g/dL (3.5-5.0); Alkaline Phosphatase 93 U/L (38-126); Anion Gap 16 mmol/L; Blood Urea Nitrogen 8 mg/dL (9-20); Calcium 9.1 mg/dL (8.4-10.2); Carbon Dioxide 23 mmol/L (22-30); Chloride 101 mmol/L (98-107); Glucose 96 mg/dL (74-99); Magnesium 1.6 mg/dL (1.6-2.3); Non-African American GFR(CKD) >90 (>60 ml/min/1.73 sqM); Potassium 2.9 mmol/L (3.5-5.1); Salicylate <1.0 mg/dL; Sodium 140 mmol/L (137-145); Total Bilirubin 1.9 mg/dL (0.2-1.3); Total Protein 7.6 g/dL (6.3-8.2)
[2025-02-20 14:00] LABS: Alcohol 99 mg/dL
[2025-02-20 14:03] LABS: Amphetamine Screen,Urine Detected (NotDetected); Barbiturate Screen,Urine Not Detected (NotDetected); Benzodiazepines Screen,Urine Not Detected (NotDetected); Cocaine Screen,Urine Not Detected (NotDetected); Methadone Screen, Urine Not Detected (NotDetected); Opiate Screen,Urine Not Detected (NotDetected); Oxycodone Screen, Urine Not Detected (NotDetected); Phencyclidine Screen,Urine Not Detected (NotDetected); Tricyclic Antidepressant,Urine Not Detected (NotDetected); Urn Cannabinoid Scrn Not Detected (NotDetected)
[2025-02-20] MEDS: LORazepam 1 MG/0.5 ML VIAL IV STA ×2 (14:07→14:58)
[2025-02-20] MEDS: POTASSIUM CHLORIDE 40 MEQ in WATER FOR INJECTION 1 100ML.BAG IVPB STA (14:57)
[2025-02-20] MEDS: POTASSIUM CHLORIDE ER 20 MEQ TAB.ER PO STA (15:33)
== END 2025-02-20 15:38 | disposition home or self-care (01) ==
LOC: EC 12:08
DX: T43.621A Poisoning by amphetamines, accidental (unintentional), initial encounter (principal); F17.200 Nicotine dependence, unspecified, uncomplicated
CPT/HCPCS: 36415; 93005; 80053; 83735; 84484; 85025; 80306; 80143; 80320; 80179; 99285; 96374; 96375; 96361; J2060; J3480